=== PATIENT | male | born 1980 | race Caucasian/White ===

== ENCOUNTER 2018-06-23 20:56 | Emergency (ER) | payer OTHER ==
--- NOTE | 2018-06-23 21:45 | Emergency Department Report ---
Chief Complaint: Extremity Injury, Lower Stated Complaint: KNEE PAIN Time Seen by Provider: 06/23/18 21:39 - HPI History of Present Illness: the language line used for interpretation right knee pain that began 15 days ago right knee edema pt has right knee joint effusion no injury, fall, trauma never had previously denies any hx of gout no fever MSE screening note: Focused history and physical exam performed. Due to findings the following was ordered: xr right knee ED Disposition for MSE Condition: Stable
--- NOTE | 2018-06-23 22:33 | XRay Report ---
PROCEDURE: XR KNEE 3V RT TECHNIQUE: Right knee radiographs, AP, lateral, and oblique views. HISTORY: right knee pain, right knee joint effusion COMPARISONS: None FINDINGS: Fracture (s) and/or Dislocation(s): None Alignment: Normal Joint space(s): Moderate degree of joint effusion is noted Soft tissues: Normal Bone mineralization: Minimal degree osteophyte formation is noted involving patellofemoral joint Foreign bodies: None IMPRESSION: No acute fracture Minimal degree of osteoarthritis Moderate degree joint effusion This document is electronically signed by Domo Waters MD., June 23 2018 10:31:28 PM ET
--- NOTE | 2018-06-24 02:27 | Emergency Department Report ---
ED Lower Extremity HPI - General Chief Complaint: Extremity Injury, Lower Stated Complaint: KNEE PAIN Time Seen by Provider: 06/23/18 21:39 Source: patient, family Mode of arrival: Wheelchair Limitations: No Limitations - History of Present Illness Initial Comments: Patient is a 37-year-old Moh[place]-speaking male who presents for right knee effusion acute on chronic this episode started 3 days ago requesting referral to orthopedic surgery for drainage there's been no new fall injury or trauma patient advises 410 pain with ambulation bilateral shins is no weakness is unknown assessment possible bowel or bladder function MD Complaint: knee injury Onset/Timin -: Gradual (2), week(s) Injury: Knee: Right Type of Injury: unknown Place: home Severity: moderate Severity scale (0 -10): 5 Improves With: nothing Worsens With: weight bearing, movement, palpation Associated Symptoms: swelling, able to partially bear weight - Related Data Previous Rx's Medication Instructions Recorded Last Taken Type Cyclobenzaprine [Flexeril] 10 mg PO TID PRN #30 tablet 06/24/18 Unknown Rx Menthol/Camphor [[place] 1 applicatio TP QID PRN #1 tube 06/24/18 Unknown Rx Ointment] Naproxen 500 mg PO BID 10 Days #30 tablet 06/24/18 Unknown Rx predniSONE [Deltasone] 40 mg PO QDAY 5 Days #10 tab 06/24/18 Unknown Rx Allergies Allergy/AdvReac Type Severity Reaction Status Date / Time No Known Allergies Allergy Unverified 06/23/18 21:03 ED Review of Systems ROS: Stated complaint: KNEE PAIN Other details as noted in HPI Constitutional: denies: chills, fever Eyes: denies: eye pain, eye discharge, vision change ENT: denies: ear pain, throat pain Respiratory: denies: cough, shortness of breath, wheezing Cardiovascular: denies: chest pain, palpitations Endocrine: no symptoms reported Gastrointestinal: denies: abdominal pain, nausea, diarrhea Genitourinary: denies: urgency, dysuria Musculoskeletal: joint swelling, arthralgia Skin: denies: rash, lesions Neurological: denies: headache, weakness, paresthesias Psychiatric: as per HPI Hematological/Lymphatic: denies: easy bleeding, easy bruising ED Past Medical Hx - Past Medical History Previous Medical History?: No - Surgical History Past Surgical History?: No - Social History Smoking Status: Never Smoker Substance Use Type: Alcohol - Medications Home Medications: Home Medications Medication Instructions Recorded Confirmed Last Taken Type Cyclobenzaprine [Flexeril] 10 mg PO TID PRN #30 tablet 06/24/18 Unknown Rx Menthol/Camphor [[place] 1 applicatio TP QID PRN #1 tube 06/24/18 Unknown Rx Ointment] Naproxen 500 mg PO BID 10 Days #30 tablet 06/24/18 Unknown Rx predniSONE [Deltasone] 40 mg PO QDAY 5 Days #10 tab 06/24/18 Unknown Rx ED Physical Exam - General Limitations: No Limitations General appearance: alert, in no apparent distress - Head Head exam: Present: atraumatic - Eye Eye exam: Present: normal appearance, PERRL, EOMI Pupils: Present: other - ENT ENT exam: Present: normal exam, normal orophraynx, mucous membranes moist, TM's normal bilaterally - Neck Neck exam: Present: normal inspection, full ROM, lymphadenopathy, thyromegaly, other - Expanded Neck Exam Expanded Neck exam: Present: tenderness, thyroid mass. Absent: midline deformity, anterior neck swelling, carotid bruit, tracheal deviation - Respiratory Respiratory exam: Present: normal lung sounds bilaterally. Absent: respiratory distress, wheezes, stridor, chest wall tenderness - Cardiovascular Cardiovascular Exam: Present: regular rate, normal rhythm, normal heart sounds. Absent: systolic murmur, diastolic murmur, rubs, gallop - GI/Abdominal GI/Abdominal exam: Present: soft - Rectal Rectal exam: Present: deferred - Extremities Exam Extremities exam: Present: normal inspection - Back Exam Back exam: Present: normal inspection, full ROM, tenderness, CVA tenderness (L), muscle spasm, rash noted. Absent: CVA tenderness (R), paraspinal tenderness, vertebral tenderness - Neurological Exam Neurological exam: Present: alert, oriented X3, CN II-XII intact, normal gait, reflexes normal. Absent: motor sensory deficit - Psychiatric Psychiatric exam: Present: normal affect, normal mood - Skin Skin exam: Present: warm, dry, intact, normal color. Absent: rash ED Lower Extremity MDM - Radiology Data Radiology results: report reviewed, image reviewed no fracture no soft injury mild effusion no sprain will advise take medications a pre scribed plan follow up with ortho in 2-3 days pt verbalized agreement and understanding of discharge plan, pt for dc to kaity instabl condition at this time, Critical care attestation.: If time is entered above; I have spent that time in minutes in the direct care of this critically ill patient, excluding procedure time. ED Disposition Clinical Impression: Chronic pain of right knee, Knee effusion, right Disposition: DC-01 TO HOME OR SELFCARE Is pt being admited?: No Does the pt Need Aspirin: No Condition: Stable Instructions: Knee Effusion (ED), Osteoarthritis (ED) Prescriptions: predniSONE [Deltasone] 40 mg PO QDAY 5 Days #10 tab Cyclobenzaprine [Flexeril] 10 mg PO TID PRN #30 tablet PRN Reason: Muscle Spasm Naproxen 500 mg PO BID 10 Days #30 tablet Menthol/Camphor [[place] Ointment] 1 applicatio TP QID PRN #1 tube PRN Reason: Pain , Severe (7-10) Referrals: PRIMARY CAREMD [Primary Care Provider] - 3-5 Days ANASTACIO GERMAN MD [Staff Physician] - 3-5 Days Forms: Work/School Release Form(ED) Time of Disposition: 02:44
[2018-06-24 03:07] VITALS: BP 141/89
== END 2018-06-24 03:07 | disposition home or self-care (01) ==
LOC: ED 20:56
DX: G89.29 Other chronic pain (principal); M25.561 Pain in right knee; M25.461 Effusion, right knee